=== PATIENT | male | born 1970 ===

== ENCOUNTER 2024-08-20 09:29 | Outpatient (CLI) | payer OTHER ==
[2024-08-20 10:16] LABS: HEMATOCRIT 42.4 % (39.0-48.0); HEMOGLOBIN 14.7 g/dL (13-16.00); MEAN CELL VOLUME 91.7 fL (80.0-100.00); MEAN CORPUSCULAR HEMOGLOBIN 31.8 pg (27.00-32.0); MEAN CORPUSCULAR HGB CONC 34.6 g/dl (32.0-36.0); PLATELET COUNT 233 K/uL (150-450); RED BLOOD COUNT 4.62 M/uL (4.00-6.00); RED CELL DISTRIBUTION WIDTH 13.4 % (11.5-14.5)
[2024-08-20 10:19] LABS: PH,URINE 5.5 (5.0-8.0); URINE APPEARANCE Clear; URINE BILIRRUBIN Negative (NEGATIVE); URINE BLOOD Negative; URINE COLOR Yellow; URINE GLUCOSE Negative (NEGATIVE); URINE KETONE Negative (NEGATIVE); URINE LEUKOCYTE Negative; URINE NITRATE Negative; URINE PROTEIN Negative (NEGATIVE); URINE UROBILINOGEN 0.2 E.U./dl
[2024-08-20 10:23] LABS: URINE BACTERIA 16.3 uL (0.0-1933)
[2024-08-20 10:29] LABS: URINE CAST 0.15 uL (0.0-1.40); URINE EPITHELIAL CELLS 1.2 uL (0.0-38.8)
[2024-08-20 11:29] LABS: ALBUMIN 4.1 gm/dL (3.4-5.0); ALKALINE PHOSPHATASE 59 U/L (50-136); ALT/SGPT 38 U/L (12-78); ANION GAP 8 (10.0-20.0); AST/SGOT 25 U/L (15-37); BILIRUBIN TOTAL 0.86 mg/dL (0.3-1.2); BLOOD UREA NITROGEN 19 mg/dL (7-18); BUN CREA RATIO 16 (7.0-25.0); CALCIUM 9.2 mg/dL (8.5-10.1); CARBON DIOXIDE 30 mEq/L (21-32); CHLORIDE 107 mmol/L (98-107); CHOL HDL RATIO 3.8 (0-5.0); CHOLESTEROL 165 mg/dL (0-200); GFR 63.09; GLOBULINA 3.8 G/DL (2.4-3.5); GLUCOSE FASTING 94 mg/dL (65-100); HDL 44 mg/dl (40-60); LDL 89 mg/dl (0-130); OSMOLALITY SERUM 283 MOSM/KG (275-295); POTASSIUM 4.27 mEq/L (3.5-5.1); SODIUM 141 mmol/L (136-145); T3 UPTAKE 32 % (33-40); T4 TOTAL 9.82 UG/DL (4.5-12.1); TOTAL PROTEIN 7.9 gm/dL (6.4-8.2); TRIGLYCERIDES 159 mg/dL (0-150); VLDL 31 (0-39)
[2024-08-20 11:30] LABS: C-REACTIVE PROTEIN < 0.29 MG/DL (0.00-0.29)
[2024-08-20 11:35] LABS: T3 TOTAL 1.2 ng/ml (0.846-2.02); VITAMIN D3 25 HYDROXY 39.16 ng/ml (30-120)
== END 2024-08-20 09:30 | disposition home or self-care (01) ==
LOC: LAB 09:29
DX: D50.9 Iron deficiency anemia, unspecified (principal); N39.0 Urinary tract infection, site not specified; E87.8 Other disorders of electrolyte and fluid balance, not elsewhere classified; I10 Essential (primary) hypertension; E78.2 Mixed hyperlipidemia; E78.00 Pure hypercholesterolemia, unspecified; E11.9 Type 2 diabetes mellitus without complications; Z12.11 Encounter for screening for malignant neoplasm of colon; E55.9 Vitamin D deficiency, unspecified; R80.9 Proteinuria, unspecified; E03.9 Hypothyroidism, unspecified; N42.9 Disorder of prostate, unspecified; M25.50 Pain in unspecified joint

== ENCOUNTER 2024-08-20 10:27 | Outpatient (CLI) | payer OTHER | END 2024-08-20 10:37 | disposition home or self-care (01) | LOC: SONOGRAMA 10:27 | DX: M54.50 Low back pain, unspecified (principal); I11.9 Hypertensive heart disease without heart failure; R10.9 Unspecified abdominal pain; R10.10 Upper abdominal pain, unspecified ==